=== PATIENT | male | born 1965 | race Caucasian/White ===

== ENCOUNTER 2018-01-22 22:08 | Emergency (ER) | payer MEDICAID, OTHER ==
[~2018-01-22] VITALS: Ht 182.9 cm; Wt 81.6 kg
[2018-01-22 22:10] VITALS: BP 148/97
--- NOTE | 2018-01-22 22:10 | NUR ---
PT AMBULATORY TO ER BED 13. BIB SELF C/O THINKS HES HAVING ALLERGIC REACTION TO SEAFOOD. PT STATES FEELS LIKE HES HAVING AN ASTHMA ATTACK. LUNGS CLEAR BILAT. 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 VSS/RESP EVEN UNLABORED/NAD NOTED/SKIN WARM AND DRY/DENIES N-V-D/AFEBRILE/AOX4. AWAITING MD STUART.
== END 2018-01-22 23:03 | disposition home or self-care (01) ==
LOC: ER 22:10
DX: T78.40XA Allergy, unspecified, initial encounter (principal); Z91.013 Allergy to seafood; Z91.018 Allergy to other foods
CPT/HCPCS: A4606; Z7610

== ENCOUNTER 2018-02-05 14:19 | Emergency (ER) | payer MEDICAID, OTHER ==
[~2018-02-05] VITALS: Ht 167.6 cm; Wt 77.6 kg
--- NOTE | 2018-02-05 14:19 | NUR ---
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 PLACED ON MONITOR AWAITNG MD ORDER
[2018-02-05] MEDS ORDERED: IV NS 0.9% 1,000 ML BAG IV ONE (15:00)
[2018-02-05 15:08] LABS: BASOPHILS # (AUTO) 0.1 /CMM (0.0-0.2); BASOPHILS % (AUTO) 0.9 % (0.0-2.0); EOSINOPHILS % (AUTO) 4.6 % (0.0-6.0); HEMATOCRIT 45 % (39-51); HEMOGLOBIN 15.4 g/dL (13.5-17.5); LYMPHOCYTES # (AUTO) 1.5 /CMM (0.8-4.8); LYMPHOCYTES % (AUTO) 26.2 % (20.0-44.0); MEAN CORPUSCULAR HGB CONC 34 g/dl (31.0-36.0); MEAN CORPUSCULAR VOLUME 89 fL (80-96); MONOCYTES # (AUTO) 0.6 /CMM (0.1-1.30); MONOCYTES % (AUTO) 10.1 % (2.0-12.0); NEUTROPHILS # (AUTO) 3.2 /CMM (1.8-8.9); NEUTROPHILS % (AUTO) 58.2 % (43.0-81.0); PLATELET COUNT (AUTO) 215 /CMM (150-450); RDW COEFFICIENT OF VARIATION 12.4 (11.5-15.0); RED BLOOD CELL COUNT(AUTO) 5.03 MIL/uL (4.5-6.0); WHITE BLOOD COUNT (AUTO) 5.7 K/uL (4.3-11.0)
--- NOTE | 2018-02-05 15:09 | NUR ---
RAC #[id number] IV ACCESS. BLOOD SAMPLE COLLECTED SENT TO LAB
--- NOTE | 2018-02-05 15:10 | NUR ---
RARE/ENDANGERED SPECIES SPECIALIST AT BEDSIDE
--- NOTE | 2018-02-05 15:15 | NUR ---
PT TAKEN TO CT
[2018-02-05 15:18] LABS: CALCIUM, SERUM 9.2 mg/dL (8.5-10.1); CARBON DIOXIDE 26 mmol/L (21-32); CHLORIDE 102 mmol/L (98-107); CREATININE 1.2 mg/dL (0.6-1.3); GLUCOSE 110 mg/dL (74-106); SODIUM SERUM 137 mmol/L (136-145); UREA NITROGEN, BLOOD 11 mg/dL (7-18)
[2018-02-05 15:21] LABS: INR 0.97 (0.85-1.15)
[2018-02-05 15:25] LABS: ALANINE AMINOTRANSFERASE 34 U/L (12-78); ALBUMIN 3.8 g/dL (3.4-5.0); ALKALINE PHOSPHATASE 81 U/L (46-116); ASPARTATE AMINOTRANSFERASE 23 U/L (15-37); BILIRUBIN,DIRECT 0.1 mg/dL (0.0-0.2); BILIRUBIN,TOTAL 0.3 mg/dL (0.2-1.0); TOTAL PROTEIN, SERUM 7.5 g/dL (6.4-8.2)
[2018-02-05 15:27] LABS: TROPONIN I < 0.017 ng/mL (0.00-0.056)
[2018-02-05 15:53] LABS: APPEARANCE,URINE Clear (CLEAR); BILIRUBIN,URINE Negative (NEGATIVE); BLOOD, URINE Negative Ery/uL (NEGATIVE); COLOR,URINE Yellow (YELLOW); KETONES,URINE Negative (NEGATIVE); LEUKOCYTE ESTERASE ,URINE Negative (NEGATIVE); NITRITE, URINE Negative (NEGATIVE); PROTEIN,URINE Negative (NEGATIVE); UGLUCOSE Negative (NEGATIVE); UROBILINOGEN,URINE 0.2 EU/dL (0.2)
--- NOTE | 2018-02-05 16:12 | NUR ---
Patient discharged to home in stable condition. Written and verbal after care instructions given. Patient verbalizes understanding of instruction.
--- NOTE | 2018-02-05 16:12 | NUR ---
IV removed. Catheter intact and site benign. Pressure and 4x4 applied to site. No bleeding noted.
[2018-02-05 16:18] VITALS: BP 131/87
== END 2018-02-05 16:19 | disposition home or self-care (01) ==
LOC: ER 14:22
DX: R42 Dizziness and giddiness (principal); R53.1 Weakness; R79.1 Abnormal coagulation profile; Z88.8 Allergy status to other drugs, medicaments and biological substances; Z91.013 Allergy to seafood; Z90.89 Acquired absence of other organs; Z98.890 Other specified postprocedural states
CPT/HCPCS: 36415; 70450-TC; 71045-TC; 80048-TC; 80076-TC; 81000-TC; 82962-TC; 84484-TC; 85025-TC; 85730-TC; A4606; J7030; Z7610